=== PATIENT | male | born 1975 | race Caucasian/White ===

== ENCOUNTER → 2017-04-26 | Outpatient (CLI) | payer BC ==
[~2017-04-26] MED LIST: ATOM40CA PO; ATOR-54 PO; CITA20TA4 PO; LPT20 PO; PANT40TA PO; VENL150C56 PO; VNTHFA/IN INH
== END | disposition home or self-care (01) ==
LOC: C.LABSPEC 11:15
PROVIDERS: ATTEND Urology
DX: Z86.79 Personal history of other diseases of the circulatory system (principal)

== ENCOUNTER → 2017-05-06 | Outpatient (CLI) | payer BC ==
--- NOTE | 2017-05-06 09:34 | DIAGNOSTIC IMAGING REPORT ---
CT SCAN OF THE ABDOMEN AND PELVIS WITHOUT IV CONTRAST CLINICAL HISTORY: Urinary tract infection. COMPARISON STUDY: No priors. TECHNIQUE: CT scan of the abdomen and pelvis is performed from the lung bases to the proximal femora. Images are reviewed in the axial, sagittal, and coronal planes. IV contrast was not administered for this examination. Automated dose control exposure was utilized. A dose lowering technique was utilized adhering to the principles of ALARA. CT DOSE: 1655.07 mGy.cm FINDINGS: Lung bases: The heart is normal in size and without pericardial effusion. There is a 6 mm right lower lobe pulmonary nodule seen on image #25. No airspace consolidation or pleural effusion is seen. There is a tiny hiatal hernia. Liver: The unenhanced liver is enlarged, measuring 19.4 cm in length. The liver demonstrates diffusely diminished attenuation consistent with hepatic steatosis. Fatty sparing is seen adjacent to gallbladder fossa. There is no intrahepatic biliary ductal dilatation. Gallbladder: Unremarkable. Spleen: Normal in size and attenuation. Pancreas: Unremarkable. Adrenal glands: Unremarkable. Kidneys: The unenhanced kidneys are normal in size and without hydronephrosis. There are no renal calculi identified. There is no evidence of contour deforming renal mass lesion. Abdominal vasculature: The abdominal aorta is normal in course and caliber. Bowel: The small bowel and colon are normal in course and caliber. The appendix is well-visualized and normal. Peritoneum: There is no intraperitoneal free air or abdominal ascites. There is a small fat-containing umbilical hernia. Lymphadenopathy: None. Pelvic viscera: The bladder, prostate, and seminal vesicles are normal as visualized. Skeletal structures: No lytic or blastic lesions are seen. IMPRESSION: 1. There are no acute infectious or inflammatory findings in the abdomen or pelvis. 2. Hepatomegaly and hepatic steatosis. 3. There is a 6 mm pulmonary nodule incidentally found in the right lower lobe. Follow-up with dedicated chest CT is recommended for further assessment of the thorax. Electronically signed by: Ralph Diego M.D. 05/06/2017 9:33 AM Dictated Date/Time: 05/06/2017 9:28 AM
== END | disposition home or self-care (01) ==
LOC: C.CTS 09:01
PROVIDERS: ATTEND Urology
DX: N39.0 Urinary tract infection, site not specified (principal); M54.9 Dorsalgia, unspecified; R16.0 Hepatomegaly, not elsewhere classified; K76.0 Fatty (change of) liver, not elsewhere classified; R91.1 Solitary pulmonary nodule

== ENCOUNTER 2017-07-13 11:25 | Emergency (ER) | payer BC ==
[~2017-07-13] VITALS: Ht 175.3 cm; Wt 137.0 kg
[~2017-07-13 11:25] MED LIST changes: -ATOM40CA PO; -CITA20TA4 PO; -LPT20 PO
[2017-07-13 11:28] VITALS: TEMP 36.6; Ht 175.3 cm; Wt 137.0 kg
[2017-07-13 12:26] LABS: BASO % 0.3 %; BASO ABS # 0.02 K/uL (0-0.2); COMPLETE YES; EOS % 3.8 %; HEMATOCRIT 41.5 % (42-52); IG% 0.2 %; LYMPH % 26.8 %; LYMPH ABS # 1.67 K/uL (1.2-3.4); MEAN CELL VOLUME 85.4 fL (80-100); MEAN CORPUSCULAR HGB CONC 35.2 g/dl (32-36); MEAN PLATELET VOLUME 9.9 fL (7.4-10.4); NEUT % 56.9 %; PLATELET COUNT 175 K/uL (130-400); RED BLOOD COUNT 4.86 M/uL (4.7-6.1); WHITE BLOOD COUNT 6.24 K/uL (4.8-10.8)
[2017-07-13 12:29] LABS: ALT/SGPT 52 U/L (12-78); BLOOD UREA NITROGEN 14 mg/dl (7-18); BUN/CREATININE RATIO 16.3 (10-20); CARBON DIOXIDE 28 mmol/L (21-32); CHLORIDE 106 mmol/L (98-107); CREATININE 0.83 mg/dl (0.60-1.40); GLUCOSE 97 mg/dl (70-99); POTASSIUM 3.8 mmol/L (3.5-5.1); SODIUM 139 mmol/L (136-145)
[2017-07-13 12:34] LABS: ALB/GLOB RATIO 1.2 (0.9-2); ALKALINE PHOSPHATASE 66 U/L (45-117); AST/SGOT 27 U/L (15-37)
--- NOTE | 2017-07-13 13:26 | EMERGENCY ROOM VISIT NOTE ---
ED Visit Note First contact with patient: 11:45 CHIEF COMPLAINT: Dizziness HISTORY OF PRESENT ILLNESS: This 42-year-old male patient presents to the emergency department, ambulatory, approximately one hour after experiencing a short episode of dizziness while in a meeting. 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 He states he did need to step away from the presentation due to his symptoms, but is feeling 100% improved at this time. overall, the patient states he has been intermittently having symptoms the past 2 days. He has been under significant amount of stress, and has been having several late-night meetings until 11 PM, then having to awaken early the next day. The patient states has not had a syncopal episode, nor has he felt like he may pass out. He states he has not had any nausea, vomiting, headache, chest pain, dizziness, dyspnea, cough, difficulty breathing, or other associated symptoms. He does drink a lot water throughout the day and does attempt to state well-hydrated. He does not report any significant cardiac or neurological symptoms or history. This has not occurred in the past. Did not want to come to the emergency department, however a coworker encouraged him to come here for evaluation. He denies any recent head injury. REVIEW OF SYSTEMS: A 10 system review of systems was performed with positives and pertinent negatives listed in the history of present illness. All other systems were reviewed and are negative. ALLERGIES: Penicillin MEDICATIONS: Please see list. I did personally review the patient's medication list. PMH: Hyperlipidemia, anxiety, depression SOCIAL HISTORY: The patient lives locally with family. He denies drug, alcohol , tobacco use. PHYSICAL EXAM: VITALS: Vitals are noted on the nurse's note and reviewed by myself. Vital signs stable. GENERAL: This is a 42-year-old, obese white male, in no acute distress, nondiaphoretic, well-developed well-nourished. SKIN: The skin was without rashes, erythema, edema, or bruising. There is no tenting of the skin. Capillary reflex less than 2 seconds. HEAD: Normocephalic atraumatic. EARS: External auditory canals clear, tympanic membranes pearly napier without erythema or effusion bilaterally. EYES: Pupils equal round and reactive to light and accommodation. Conjunctivae without injection, sclerae without icterus. Extraocular movements intact. NOSE: Patent, turbinates without inflammation or discharge. No sinus tenderness. MOUTH: Mucous membranes moist. Tonsils are not enlarged. Pharynx without erythema or exudate. Uvula midline. Airway patent. Tongue does not deviate. NECK: Supple without nuchal rigidity. No lymphadenopathy. No thyromegaly. Cervical spine is nontender. No JVD. HEART: Regular rate and rhythm without murmurs gallops or rubs. LUNGS: Clear to auscultation bilaterally without wheezes, rales or rhonchi. No dullness to percussion. No retractions or accessory muscle use. MUSCULOSKELETAL: No muscle atrophy, erythema, or edema noted. Full range of motion without joint tenderness in all extremities. No tenderness to palpation. Normal gait. Strength 5/5 throughout. NEURO: Patient was alert and oriented to person place and time. Normal sensation to light and sharp touch. Deep tendon reflexes 2+ throughout. No focal neurological deficits. EMERGENCY DEPARTMENT COURSE: She was seen and evaluated as above. I did discuss with him options including lab work, CT scan, or watch and wait. The patient did agree to having lab work completed. He states he does not feel that he needs a CT scan, as he is feeling completely normal at this time. I did discuss the risks of not performing this test, and the patient understands. Labs were ordered and reviewed and did not show any significant abnormalities. EKG showed normal sinus rhythm with a rate of 71. All results were reviewed with the patient at bedside. The patient does feel comfortable going home and would like to be discharged. He is encouraged to follow up with his PCP outpatient this week. The patient was discharged home in good condition. DIFFERENTIAL DIAGNOSIS: Dizziness, vertigo, closed head injury, pre-syncope, cardiac etiology, NE, CVA, TIA, infectious proceszs such as lyme disease, pneumonia, UTI, malignancy, and others. DIAGNOSIS: Dizziness Current/Historical Medications Scheduled Atorvastatin (Lipitor), 20 MG PO QAM Venlafaxine Hcl (Effexor Extended Rel), 150 MG PO QAM Scheduled PRN Albuterol Hfa (Ventolin Hfa), 2-4 PUFFS INH Q6H PRN for SOB/Wheezing Allergies Coded Allergies: Penicillins (Verified Allergy, Unknown, HIVES, 07/13/17) Vital Signs Date Time Temp Pulse Resp B/P (MAP) Pulse Ox O2 Delivery O2 Flow Rate FiO2 07/13/17 13:43 70 20 160/95 96 07/13/17 12:25 83 22 146/80 86 155/94 78 158/98 07/13/17 11:54 78 07/13/17 11:28 36.6 80 18 166/127 96 Room Air Laboratory Results 07/13/17 11:48 Red Blood Count 4.86, Mean Corpuscular Volume 85.4, Mean Corpuscular Hemoglobin 30.0, Mean Corpuscular Hemoglobin Concent 35.2, Mean Platelet Volume 9.9, Neutrophils (%) (Auto) 56.9, Lymphocytes (%) (Auto) 26.8, Monocytes (%) (Auto) 12.0, Eosinophils (%) (Auto) 3.8, Basophils (%) (Auto) 0.3, Neutrophils # (Auto ) 3.55, Lymphocytes # (Auto) 1.67, Monocytes # (Auto) 0.75, Eosinophils # (Auto ) 0.24, Basophils # (Auto) 0.02 07/13/17 11:48 Test 07/13/17 11:48 White Blood Count 6.24 K/uL (4.8-10.8) Red Blood Count 4.86 M/uL (4.7-6.1) Hemoglobin 14.6 g/dL (14.0-18.0) Hematocrit 41.5 % (42-52) Mean Corpuscular Volume 85.4 fL (80-100) Mean Corpuscular Hemoglobin 30.0 pg (25-34) Mean Corpuscular Hemoglobin Concent 35.2 g/dl (32-36) Platelet Count 175 K/uL (130-400) Mean Platelet Volume 9.9 fL (7.4-10.4) Neutrophils (%) (Auto) 56.9 % Lymphocytes (%) (Auto) 26.8 % Monocytes (%) (Auto) 12.0 % Eosinophils (%) (Auto) 3.8 % Basophils (%) (Auto) 0.3 % Neutrophils # (Auto) 3.55 K/uL (1.4-6.5) Lymphocytes # (Auto) 1.67 K/uL (1.2-3.4) Monocytes # (Auto) 0.75 K/uL (0.11-0.59) Eosinophils # (Auto) 0.24 K/uL (0-0.5) Basophils # (Auto) 0.02 K/uL (0-0.2) RDW Standard Deviation 41.8 fL (36.4-46.3) RDW Coefficient of Variation 13.6 % (11.5-14.5) Immature Granulocyte % (Auto) 0.2 % Immature Granulocyte # (Auto) 0.01 K/uL (0.00-0.02) Anion Gap 5.0 mmol/L (3-11) Est Creatinine Clear Calc Drug Dose 159.5 ml/min Estimated GFR () 125.8 Estimated GFR (Non- 108.5 BUN/Creatinine Ratio 16.3 (10-20) Calcium Level 9.0 mg/dl (8.5-10.1) Total Bilirubin 0.7 mg/dl (0.2-1) Aspartate Amino Transf (AST/SGOT) 27 U/L (15-37) Alanine Aminotransferase (ALT/SGPT) 52 U/L (12-78) Alkaline Phosphatase 66 U/L (45-117) Creatine Kinase MB 3.7 ng/ml (0.5-3.6) Creatine Kinase MB Ratio (0-3.0) Troponin I < 0.015 ng/ml (0-0.045) Total Protein 7.5 gm/dl (6.4-8.2) Albumin 4.0 gm/dl (3.4-5.0) Globulin 3.5 gm/dl (2.5-4.0) Albumin/Globulin Ratio 1.2 (0.9-2) Departure Information Impression Primary Impression: Dizziness Dispostion Home / Self-Care Condition GOOD Referrals Merline Foley M.D. (PCP) Patient Instructions ED Dizziness [facility], My [facility] Additional Instructions He was seen in the emergency department stay for dizziness. Labs did rule out any significant obvious causes for this his symptoms. I do suspect stress and sleep deprivation as the cause of your symptoms. You did decline a CT scan in the emergency department at this time. If your symptoms return or worsen, return to the emergency department to have your head scanned. Please drink plenty of fluids and stay well-hydrated. Follow-up in 2-3 days with your PCP for recheck. Is return to the emergency department for worsening dizziness, headache, confusion, numbness, tingling, blurry vision, or other concerning symptoms.
[2017-07-13 13:43] VITALS: BP 160/95; PULSE 70; O2SAT 96
== END 2017-07-13 13:45 | disposition home or self-care (01) ==
LOC: C.EDB 11:27 → C.EDA 13:45
DX: R42 Dizziness and giddiness (principal); E78.5 Hyperlipidemia, unspecified; F41.9 Anxiety disorder, unspecified; F32.9 Major depressive disorder, single episode, unspecified

== ENCOUNTER 2020-08-20 21:57 | Inpatient (IN) ==
--- OUTSIDE RECORDS SUMMARY | 2020-08-20 21:59 | External Medical Summary | Continuity of Care Document ---
:1975 Author Name Marcus Dawson, Provider Address Unavailable Unavailable , Care Team Providers Name Role Phone Unavailable Unavailable Unavailable Ofelia Dhillon Unavailable [email or web address] PACHECO MCCLENDON Unavailable Unavailable Unavailable Unavailable Unavailable Problems Asthma (493.90) (J45.909) Back pain (724.5) (M54.9) Dysphagia, pharyngeal phase (787.23) (R13.13) Acid reflux disease (530.81) (K21.9) Lung nodule (793.11) (R91.1) UTI (urinary tract infection) (599.0) (N39.0) Dysuria (788.1) (R30.0) Slowing of urinary stream (788.62) (R39.198) Pain, penile (607.9) (N48.89) Phimosis/redundant prepuce (605) (N47.8) Pain in testicle (608.9) (N50.819) Enlarged prostate without lower urinary tract symptoms (luts ) (600.00) (N40.0) Allergies and Adverse Reactions Penicillins (Allergy) Medications Effexor XR 150 MG Oral Capsule Extended Release 24 Hour , M. D. Refills: 0 Lipitor 20 MG Oral Tablet; TAKE 1 TABLET DAILY Eunice MTZ Start: 29-Apr-2017 Refills: 0 Alfuzosin HCl ER 10 MG Oral Tablet Exten ded Release 24 Hour; Take 1 tablet daily CALLUM Ocampo Quantity: 90 Refills: 3 Procedures History of vasectomy Status: Completed History of shoulder surgery Status: Comp leted History of elbow surgery Status: Complet ed History of scrotal surgery Status: Compl eted History of varicose vein ligation Status : Completed Immunizations Immunizations not documented Family History Father Family history of malignant neoplasm of prostate (V16. 42) (Z80.42) Status: Active Family history of Carcinoma of bladder (188.9) (C67.9) Statu s: Active Unknown Family Member Family history of diabetes mellitus (V18.0) Status: Active Comments: Family History (Z83.3) Family history of malignant neoplasm of Status: Active Comments: Family History stomach (V16.0) (Z80.0) Social History - Smoking Status Never smoked tobacco Plan of Treatment Planned Observations Planned Goals not documented Results No Known Results Results not documented
--- OUTSIDE RECORDS SUMMARY | 2020-08-20 21:59 | External Medical Summary | Continuity of Care Document ---
:1975 Author Name Marcus Dawson, Provider Address Unavailable Unavailable , Care Team Providers Name Role Phone Unavailable Unavailable Unavailable Ofelia Dhillon Unavailable [email or web address] PACHECO MCCLENDON Unavailable Unavailable Unavailable Unavailable Unavailable Problems Enlarged prostate without lower urinary tract symptoms (luts ) (600.00) (N40.0) Phimosis/redundant prepuce (605) (N47.8) Pain, penile (607.9) (N48.89) Back pain (724.5) (M54.9) Asthma (493.90) (J45.909) Dysuria (788.1) (R30.0) UTI (urinary tract infection) (599.0) (N39.0) Lung nodule (793.11) (R91.1) Acid reflux disease (530.81) (K21.9) Dysphagia, pharyngeal phase (787.23) (R13.13) Slowing of urinary stream (788.62) (R39.198) Pain in testicle (608.9) (N50.819) Allergies and Adverse Reactions Penicillins (Allergy) Medications Effexor XR 150 MG Oral Capsule Extended Release 24 Hour , M. D. Refills: 0 Alfuzosin HCl ER 10 MG Oral Tablet Exten ded Release 24 Hour; Take 1 tablet daily CALLUM Ocampo Quantity: 90 Refills: 3 Lipitor 20 MG Oral Tablet; TAKE 1 TABLET DAILY DIRECTED. , M.D. Start: 29-Apr-2017 Refills: 0 Procedures History of vasectomy Status: Completed History [...]
[2020-08-20] MEDS ORDERED: SODIUM CHLORIDE 0.9% 1000ML 1,000 ML IV SCH ×2 (22:15→23:14)
[2020-08-20] MEDS ORDERED: ACETAMINOPHEN 500 MG TAB PO STA (22:24)
--- NOTE | 2020-08-20 22:28 | Emergency Department Note ---
Impression & Plan COVID-19, Breathlessness, Fever, Tachycardia ED Provider Note Provider: Wilmer Pollack MD DATE OF SERVICE:08/20/2020 CHIEF COMPLAINT: Fever, sore throat, myalgias, shortness of breath HISTORY OF PRESENT ILLNESS: Patient is a 45-year-old gentleman history of prior LAP-BAND surgery and asthma presenting here today complaining of onset of symptoms starting this afternoon with sore throat developing fever of at least 202, diffuse myalgias, some shortness of breath, little bit of lower diaphragm chest discomfort with breathing. Patient states took some Advil around 9 PM this evening to help with fever. Did not use any of his albuterol. 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 Patient states his son tested negative for coronavirus last week. Patient states he had a negative test a month or 2 ago when he had shoulder surgery. Patient denies any nausea vomiting or abdominal discomfort at this time. Patient denies significant recent travel outside of the area. Patient states his ears feel little bit stuffed nasal bit of sinus congestion. States a mild headache at this time. Denies focal numbness or weakness. Patient states his predominantly recommended he come and get evaluated and tested today. REVIEW OF SYSTEMS: A total of 10 review of systems was obtained and negative except as stated above in the HPI. PAST MEDICAL HISTORY: As noted above MEDICATIONS: Reviewed home medications. SOCIAL HISTORY: Works as a [employer] claims manager, lives at home PHYSICAL EXAM: GENERAL: alert and oriented in no acute distress on stretcher Head: normocephalic and atraumatic EYES: No injection, discharge or icterus. NECK: Trachea midline. Supple. ENT: Mucous membranes pink and moist. Pharynx without erythema or exudate. LUNGS: Airway patent. No retractions but just mildly tachypneic.. Breath sounds clear with good air entry bilaterally. HEART: Regular tachycardic rate and rhythm. No chest wall tenderness ABDOMEN: Soft and non-tender, without guarding or rebound. SKIN: Acyanotic, warm, dry, without rashes EXTREMITIES: Without swelling, tenderness or deformity without significant tenderness of the right shoulder which is status post recent surgery. A few well-healed port sites are noted. NEUROLOGICAL: No focal deficits. No aphasia. No facial droop or slurred speech. EKG:Sinus tachycardia 131 bpm. There is little bit of artifact but do not see clear evidence of PVC or PAC. No acute ST segment elevation noted. Some inferior T wave inversions are noted. CONTINUOUS CARDIAC MONITORING: was ordered and showed a heart rate of 110's- 120's bpm in sinus tachycardia 1 view chest x-ray: No evidence of pneumonia or pneumothorax but increased interstitial markings questioning a possible viral process. No acute bony abnormality noted. No acute free air under the diaphragm noted. Patient's laboratory studies and imaging reviewed. Differential includes Viral syndrome, otitis, pharyngitis, pneumonia, influenza, meningitis, urinary tract infection, sepsis, bacteremia, as well as other pathologies. IMPRESSION/MEDICAL DECISION MAKING: Patient presents with a nonspecific infectious/viral symptoms. Patient does not appear grossly meningitic at this time. Influenza and Covid testing will be completed. X-ray was completed look for possible pneumonia peer D-dimer sent topically PE given his tachycardia and shortness of breath. Given IV fluids 30ml/kg based on ideal body weight as I do have concerns for possible sepsis. Patient has benign abdomen doubt acute intra-abdominal process. Blood cultures and lactate will be ordered in addition to basic laboratory studies. EKG shows a fairly sinus tachycardia with occasional benign ectopy. I doubt acute ACS at this time or aortic dissection. No significant leg swelling I doubt acute CHF at this time. No significant leukocytosis or anemia noted on laboratory studies. Some lymphopenia is noted. Lactate not elevated. D-dimer not elevated. No significant electrolyte abnormality. Creatinine 1.24 not significantly abnormal. AST slightly elevated at 42 but no evidence of bilirubin elevation. No evidence consistent with hepatitis. Lipase not elevated. Procalcitonin undetectable. Given this and the clinical history with a positive coronavirus do not believe antibiotics are necessary at this time as I doubt this is a bacterial infection. Coronavirus testing was positive seemingly explaining sy mptoms. Troponin was just detectable but not abnormal likely related some of the tachycardia. Patient reevaluated and still complains a little bit of shortness of breath but not significant hypoxia. Was able ambulate the bathroom at issue. Fever after Tylenol improved to 37.6 Celsius. Patient still with some moderate tachycardia after more than 50% of his fluids per discussed with the patient. Recommended we light additional fluid hydration continue and see if his tachycardia improves. On reevaluation tachycardia persisted after 2-1/2 L of IV fluid. Fever again has improved some. Still with some subjective shortness of breath but not hypoxic. Discussed further observation given this persistent tachycardia and he was in agreement. Hospitalist was contacted. DIAGNOSIS: Coronavirus 19, shortness of breath, tachycardia, fever DISPOSITION: Hospitalist will evaluate Patient was agreeable with this plan. Past Med/Surg History Social History Smoking Status: Former smoker Feels Safe at Home: Yes Allergies Allergies Allergy/AdvReac Type Severity Reaction Status Date / Time Penicillins Allergy Unknown Hives Verified 08/20/20 22:37 Home Meds Home Medications Medication Instructions Recorded Confirmed meloxicam 15 mg PO QAM 08/20/20 08/20/20 rosuvastatin 10 mg PO QAM 08/20/20 08/20/20 testosterone cypionate 100 mg IM WK 08/20/20 08/20/20 venlafaxine 150 mg PO QAM 08/20/20 08/20/20 Results & Data (ED) Vital Signs Vital Signs - 24 hr 08/20/20 22:06 08/20/20 22:07 08/20/20 22:09 Temperature 39.6 C H Temperature Source Oral Pulse Rate 129 H 129 H 128 H Pulse Rate from SpO2 Sensor 128 H 127 H Respiratory Rate 30 H 21 38 H Respiratory Effort / Characteristics SOB on Exertion Respiratory Depth Shallow Blood Pressure 132/86 132/86 Blood Pressure Mean 101 103 Blood Pressure Position Sitting Pulse Oximetry 94 95 94 Oxygen Delivery Method Room Air Sepsis Recent Fever Within 48 Hours Yes Sepsis New/Unexplained Change in Mental Status No Sepsis Action Taken by Nursing No Action Required 08/20/20 22:30 08/20/20 22:37 08/20/20 22:59 Temperature Temperature Source Pulse Rate 127 H 126 H Pulse Rate from SpO2 Sensor 127 H Respiratory Rate 37 H 24 Respiratory Effort / Characteristics Respiratory Depth Blood Pressure 100/75 Blood Pressure Mean 84 Blood Pressure Position Pulse Oximetry 94 94 Oxygen Delivery Method Room Air Sepsis Recent Fever Within 48 Hours Sepsis New/Unexplained Change in Mental Status Sepsis Action Taken by Nursing 08/20/20 23:00 08/20/20 23:01 08/20/20 23:30 Temperature Temperature Source Pulse Rate 123 H 127 H 118 H Pulse Rate from SpO2 Sensor 123 H 127 H 118 H Respiratory Rate 39 H 21 30 H Respiratory Effort / Characteristics Respiratory Depth Blood Pressure 115/72 Blood Pressure Mean 76 Blood Pressure Position Pulse Oximetry 93 94 94 Oxygen Delivery Method Sepsis Recent Fever Within 48 Hours Sepsis New/Unexplained Change in Mental Status Sepsis Action Taken by Nursing 08/20/20 23:31 08/20/20 23:57 08/21/20 00:00 Temperature 37.8 C H Temperature Source Oral Pulse Rate 122 H 119 H Pulse Rate from SpO2 Sensor 121 H 119 H Respiratory Rate 29 H 37 H Respiratory Effort / Characteristics Respiratory Depth Blood Pressure 124/65 Blood Pressure Mean 82 Blood Pressure Position Pulse Oximetry 95 95 Oxygen Delivery Method Sepsis Recent Fever Within 48 Hours Sepsis New/Unexplained Change in Mental Status Sepsis Action Taken by Nursing 08/21/20 00:01 08/21/20 00:02 Temperature Temperature Source Pulse Rate 120 H 116 H Pulse Rate from SpO2 Sensor 121 H 117 H Respiratory Rate 39 H 26 H Respiratory Effort / Characteristics Respiratory Depth Blood Pressure 89/70 L 119/52 L Blood Pressure Mean 87 74 Blood Pressure Position Pulse Oximetry 95 95 Oxygen Delivery Method Sepsis Recent Fever Within 48 Hours Sepsis New/Unexplained Change in Mental Status Sepsis Action Taken by Nursing Laboratory Data Result diagrams: 08/20/20 22:50 08/20/20 22:50 Lab Results 08/20/20 08/20/20 08/20/20 Range/Units 21:50 21:50 22:45 WBC (4.8-10.8) K/uL RBC (4.7-6.1) M/uL Hgb (14.0-18.0) g/dL Hct (42-52) % MCV (80-100) fL MCH (25-34) pg MCHC (32-36) g/dL RDW Std Deviation (36.4-46.3) fL RDW Coeff of Shun (11.5-14.5) % Plt Count (130-400) K/uL MPV (7.4-10.4) fL Immature Gran % (Auto) % Neut % (Auto) % Lymph % (Auto) % Meigs % (Auto) % Eos % (Auto) % Baso % (Auto) % Neut # (Auto) (1.4-6.5) K/uL Lymph # (Auto) (1.2-3.4) K/uL Meigs # (Auto) (0.11-0.59) K/uL Eos # (Auto) (0-0.5) K/uL Baso # (Auto) (0-0.2) K/uL Immature Gran # (Auto) (0.00-0.02) K/uL PT (9.0-12.0) Seconds INR (0.9-1.1) APTT (21.0-31.0) Seconds PTT Ratio D-Dimer (0-500) ug/L FEU Sodium (136-145) mmol/L Potassium (3.5-5.1) mmol/L Chloride (98-107) mmol/L Carbon Dioxide (21-32) mmol/L Anion Gap (3-11) BUN (7-18) mg/dl Creatinine (0.6-1.4) mg/dl Est Cr Clr Drug Dosing ml/min Est GFR ( Amer) Est GFR (Non-Af Amer) BUN/Creatinine Ratio (10-20) Glucose (70-99) mg/dl Lactate 1.3 (0.4-2.0) mmol/L Calcium (8.5-10.1) mg/dl Magnesium (1.8-2.4) mg/dl Total Bilirubin (0.2-1) mg/dl AST (15-37) U/L ALT (12-78) U/L Alkaline Phosphatase (45-117) U/L Troponin I (0-0.045) ng/ml Total Protein (6.4-8.2) gm/dl Albumin (3.4-5.0) gm/dl Globulin (2.5-4.0) gm/dl Albumin/Globulin Ratio (0.9-2) Lipase (73-393) U/L Procalcitonin (0-0.5) ng/ml Specimen Hemolysis COVID-19 Eval [facility] Influ A Molecular Assay (Negative) Influ B Molecular Assay (Negative) SARS-CoV-2, RNA, NAAT POSITIVE A* (NEGATIVE) 08/20/20 08/20/20 08/20/20 Range/Units 22:50 22:50 22:50 WBC (4.8-10.8) K/uL RBC (4.7-6.1) M/uL Hgb (14.0-18.0) g/dL Hct (42-52) % MCV (80-100) fL MCH (25-34) pg MCHC (32-36) g/dL RDW Std Deviation (36.4-46.3) fL RDW Coeff of Shun (11.5-14.5) % Plt Count (130-400) K/uL MPV (7.4-10.4) fL Immature Gran % (Auto) % Neut % (Auto) % Lymph % (Auto) % Meigs % (Auto) % Eos % (Auto) % Baso % (Auto) % Neut # (Auto) (1.4-6.5) K/uL Lymph # (Auto) (1.2-3.4) K/uL Meigs # (Auto) (0.11-0.59) K/uL Eos # (Auto) (0-0.5) K/uL Baso # (Auto) (0-0.2) K/uL Immature Gran # (Auto) (0.00-0.02) K/uL PT 11.4 (9.0-12.0) Seconds INR 1.1 (0.9-1.1) APTT 30.5 (21.0-31.0) Seconds PTT Ratio 1.1 D-Dimer 310 (0-500) ug/L FEU Sodium 137 (136-145) mmol/L Potassium 3.9 (3.5-5.1) mmol/L Chloride 105 (98-107) mmol/L Carbon Dioxide 28 (21-32) mmol/L Anion Gap 5.0 (3-11) BUN 22 H (7-18) mg/dl Creatinine 1.24 (0.6-1.4) mg/dl Est Cr Clr Drug Dosing 97.8 ml/min Est GFR ( Amer) 80.9 Est GFR (Non-Af Amer) 69.8 BUN/Creatinine Ratio 17.6 (10-20) Glucose 90 (70-99) mg/dl Lactate (0.4-2.0) mmol/L Calcium 9.2 (8.5-10.1) mg/dl Magnesium 1.8 (1.8-2.4) mg/dl Total Bilirubin 0.6 (0.2-1) mg/dl AST 42 H (15-37) U/L ALT 41 (12-78) U/L Alkaline Phosphatase 55 (45-117) U/L Troponin I 0.016 (0-0.045) ng/ml Total Protein 7.7 (6.4-8.2) gm/dl Albumin 4.1 (3.4-5.0) gm/dl Globulin 3.6 (2.5-4.0) gm/dl Albumin/Globulin Ratio 1.1 (0.9-2) Lipase 137 (73-393) U/L Procalcitonin < 0.05 (0-0.5) ng/ml Specimen Hemolysis COVID-19 Eval Order Influ A Molecular Assay (Negative) Influ B Molecular Assay (Negative) SARS-CoV-2, RNA, NAAT (NEGATIVE) 08/20/20 08/20/20 Range/Units 22:50 Unknown WBC 8.86 (4.8-10.8) K/uL RBC 5.58 (4.7-6.1) M/uL Hgb 16.8 (14.0-18.0) g/dL Hct 48.6 (42-52) % MCV 87.1 (80-100) fL MCH 30.1 (25-34) pg MCHC 34.6 (32-36) g/dL RDW Std Deviation 45.3 (36.4-46.3) fL RDW Coeff of Shun 14.1 (11.5-14.5) % Plt Count 176 (130-400) K/uL MPV 10.7 H (7.4-10.4) fL Immature Gran % (Auto) 0.3 % Neut % (Auto) 74.8 % Lymph % (Auto) 13.0 % Meigs % (Auto) 5.4 % Eos % (Auto) 6.0 % Baso % (Auto) 0.5 % Neut # (Auto) 6.63 H (1.4-6.5) K/uL Lymph # (Auto) 1.15 L (1.2-3.4) K/uL Meigs # (Auto) 0.48 (0.11-0.59) K/uL Eos # (Auto) 0.53 H (0-0.5) K/uL Baso # (Auto) 0.04 (0-0.2) K/uL Immature Gran # (Auto) 0.03 H (0.00-0.02) K/uL PT (9.0-12.0) Seconds INR (0.9-1.1) APTT (21.0-31.0) Seconds PTT Ratio D-Dimer (0-500) ug/L FEU Sodium (136-145) mmol/L Potassium (3.5-5.1) mmol/L Chloride (98-107) mmol/L Carbon Dioxide (21-32) mmol/L Anion Gap (3-11) BUN (7-18) mg/dl Creatinine (0.6-1.4) mg/dl Est Cr Clr Drug Dosing ml/min Est GFR ( Amer) Est GFR (Non-Af Amer) BUN/Creatinine Ratio (10-20) Glucose (70-99) mg/dl Lactate (0.4-2.0) mmol/L Calcium (8.5-10.1) mg/dl Magnesium (1.8-2.4) mg/dl Total Bilirubin (0.2-1) mg/dl AST (15-37) U/L ALT (12-78) U/L Alkaline Phosphatase (45-117) U/L Troponin I (0-0.045) ng/ml Total Protein (6.4-8.2) gm/dl Albumin (3.4-5.0) gm/dl Globulin (2.5-4.0) gm/dl Albumin/Globulin Ratio (0.9-2) Lipase (73-393) U/L Procalcitonin (0-0.5) ng/ml Specimen Hemolysis COVID-19 Eval Order Influ A Molecular Assay Negative (Negative) Influ B Molecular Assay Negative (Negative) SARS-CoV-2, RNA, NAAT (NEGATIVE) Administered Medications Discontinued Medications Acetaminophen (Acetaminophen 500 Mg Tab) 1,000 mg PO NOW STA Stop: 08/20/20 22:25 Last Admin: 08/20/20 22:48 Dose: 1,000 mg Documented by: [id number] Sodium Chloride (Nss 1000ml) 1,000 mls @ 999 mls/hr IV .Q1H1M DEJAH Stop: 08/20/20 23:14 Last Infusion: 08/21/20 00:09 Dose: 0 mls/hr Documented by: [id number] Admin: 08/20/20 22:48 Dose: 999 mls/hr Documented by: [id number] Sodium Chloride (Nss 1000ml) 1,000 mls @ 999 mls/hr IV .Q1H1M DEJAH Stop: 08/21/20 00:13 Last Infusion: 08/21/20 00:06 Dose: 0 mls/hr Documented by: [id number] Admin: 08/20/20 22:48 Dose: 999 mls/hr Documented by: [id number] Sodium Chloride (Nss 1000ml) 250 mls @ 999 mls/hr IV .Q16M DEJAH Stop: 08/21/20 00:29 Last Infusion: 08/21/20 00:40 Dose: 0 mls/hr Documented by: [id number] Admin: 08/21/20 00:06 Dose: 999 mls/hr Documented by: [id number] Discharge Plan Visit Data Chief Complaint: Flu Like Symptoms Stated Complaint: FEVER, SOB, SORE THROAT, CHILLS ED Provider: Wilmer Pollack Discharge Problem: COVID-19, Breathlessness, Fever, Tachycardia Patient Disposition: Being Evaluated by Hospitalist Forms Stand Alone Forms: [facility] Prescriptions Prescriptions: No Action meloxicam 15 mg tablet 15 mg PO QAM RF: 0 testosterone cypionate 100 mg/mL Oil 100 mg IM WK RF: 0 venlafaxine 150 mg capsule,extended release 24hr 150 mg PO QAM RF: 0 rosuvastatin 10 mg tablet 10 mg PO QAM RF: 0 Referrals Referrals: Merline Foley MD [Primary Care Provider] - Discharge Problem: Fever Qualifiers: Fever type: unspecified Qualified Code(s): R50.9 - Fever, unspecified
[2020-08-20 23:08] LABS: Basophils # (auto) 0.04 K/uL (0-0.2); Basophils % (auto) 0.5 %; Eosinophils # (auto) 0.53 K/uL (0-0.5); Hematocrit (blood only) 48.6 % (42-52); Hemoglobin 16.8 g/dL (14.0-18.0); Immature Granulocytes # (auto) 0.03 K/uL (0.00-0.02); Immature Granulocytes % (auto) 0.3 %; Lymphocytes # (auto) 1.15 K/uL (1.2-3.4); Mean Corpuscular Hemoglobin 30.1 pg (25-34); Mean Corpuscular Hgb Conc 34.6 g/dL (32-36); Mean Corpuscular Volume 87.1 fL (80-100); Mean Platelet Volume 10.7 fL (7.4-10.4); Monocytes # (auto) 0.48 K/uL (0.11-0.59); Monocytes % (auto) 5.4 %; Neutrophils # (auto) 6.63 K/uL (1.4-6.5); Neutrophils % (auto) 74.8 %; Platelet Count 176 K/uL (130-400); RDW Coefficient of Variation 14.1 % (11.5-14.5); RDW Standard Deviation 45.3 fL (36.4-46.3); Red Blood Count 5.58 M/uL (4.7-6.1); White Blood Count 8.86 K/uL (4.8-10.8)
[2020-08-20 23:27] LABS: Albumin Level 4.1 gm/dl (3.4-5.0); BUN Creatinine Ratio 17.6 (10-20); Calcium 9.2 mg/dl (8.5-10.1); Creatinine Clr Calc Pharmacy 97.8 ml/min; D Dimer 310 ug/L FEU (0-500); Est GFR (African American) 80.9; Est GFR (Non-African American) 69.8; INR 1.1 (0.9-1.1); Magnesium 1.8 mg/dl (1.8-2.4); Partial Thromboplastin Ratio 1.1; Partial Thromboplastin Time 30.5 Seconds (21.0-31.0); Potassium 3.9 mmol/L (3.5-5.1); Prothrombin Time 11.4 Seconds (9.0-12.0)
[2020-08-20 23:33] LABS: Albumin Globulin Ratio 1.1 (0.9-2); Bilirubin,Total 0.6 mg/dl (0.2-1); Globulin 3.6 gm/dl (2.5-4.0); Total Protein 7.7 gm/dl (6.4-8.2); Troponin I 0.016 ng/ml (0-0.045)
[2020-08-20 23:35] LABS: Influenza A virus by PCR Negative (Negative); Influenza B virus by PCR Negative (Negative)
[2020-08-21] MEDS ORDERED: SODIUM CHLORIDE 0.9% 1000ML 250 ML IV SCH (00:14)
[2020-08-21] MEDS ORDERED: ONDANSETRON INJ 2 MG/ML 2 ML VIAL IV PRN (02:41)
[2020-08-21] MEDS ORDERED: LEVALBUTEROL TARTRATE 15 GM HFA.AER.AD INH PRN (02:41)
[2020-08-21] MEDS ORDERED: NITROGLYCERIN SL 0.4 MG/TAB TAB SL PRN (02:41)
[2020-08-21] MEDS: SODIUM CHLORIDE 0.9% 1000ML 1,000 ML IV SCH ×3 (03:02→21:00)
--- NOTE | 2020-08-21 03:10 | History and Physical Report ---
DATE OF ADMISSION: 08/21/2020 CHIEF COMPLAINT: Fever, tachycardia, and COVID positive. HISTORY OF PRESENT ILLNESS: This 45-year-old male with past medical history significant for hyperlipidemia, exercise-induced asthma, BPH, anxiety, obesity, presents with high fever, tachycardia and shortness of breath. Today is the first day he started to have symptoms with fever, some nasal congestion, mild earaches, no sore throat, no cough. 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 No obvious exposure, but now he just got informed his son is throwing up. When the patient came to the ER, he was having T-max of 39.6, heart rates in the 120s and tachypneic with respiratory rate in 30s. He was given sepsis fluid bolus. Labs look fine and his COVID came back positive.Even after the fluid bolus, he was still tachycardic, so we were called for admission. The patient currently saturating fine on room air. Currently resting comfortably and hemodynamically stable. Heart rate is still in the likes of 100s and low 110s range. Denies any chest pain. Currently, no tachypnea. No headache, no blurred vision, no nausea, no vomiting, no abdominal pain, no diarrhea or constipation. Normal bladder movements. No swelling in the legs, no rash. History of Gastric band but that is removed. Recently had right shoulder surgery for rotator cuff repair. ALLERGIES: NAPROXEN, PENICILLIN. PAST MEDICAL HISTORY: As mentioned above. PAST SURGICAL HISTORY: Left toe arthroscopy, EGD with endoscopic ultrasound, gastric stent placement in 2014 and gastric band removal in January 2016, repair of sperm cord ventral hernia, vasectomy. MEDICATIONS: The patient is on Meloxicam 50 mg p.o. daily, atorvastatin 10 mg p.o. a.m., testosterone 100 mg IM shot weekly, venlafaxine 150 mg p.o. a.m. FAMILY HISTORY: Significant for father had high cholesterol, aunt had stomach cancer. Maternal grandfather had leukemia, paternal grandfather had prostate cancer, uncle has prostate cancer. Son has seizures. SOCIAL HISTORY: . Former smoker, smoked 1 pack a day for 10 years. No alcohol use, no drug use. REVIEW OF SYMPTOMS: As per HPI. Rest of review of symptoms negative. PHYSICAL EXAMINATION: GENERAL: The patient is obese, not in acute distress. VITAL SIGNS: T-max was 39.6, respiratory rate currently 22, blood pressure 128/64, pulse 112, oxygen 97% on room air. HEENT: Pupils equal, round, reactive to light. Oral mucosa moist. NECK: Supple. No neck masses seen. CARDIOVASCULAR: S1, S2 heard. Tachycardia. No murmurs. RESPIRATORY SYSTEM: Normal AP diameter. No accessory muscle use. No wheezing, no crackles. ABDOMEN: Soft, bowel sounds present, nontender. No distention. CENTRAL NERVOUS SYSTEM: Cranial nerves II-XII grossly intact. Nonfocal. EXTREMITIES: No edema, no erythema. LABORATORY DATA: WBC 8.8, hemoglobin 16.8, hematocrit 48.6, platelets 176. PT 11.4, INR 1.1, APTT 30.5. D-dimer 310. Sodium 137, potassium 3.9, chloride 105, bicarbonate 28, BUN 22, creatinine 1.24, serum glucose 90. Lactate 1.3, calcium 9.2, magnesium 1.8, total bilirubin 0.6, AST 42, ALT 41, alkaline phosphatase 65. Troponin I 0.016. Procalcitonin less than 0.05. Lipase 137. SARS-CoV-2 RNA positive. Chest x-ray: No acute findings. ASSESSMENT AND PLAN: This is a 45-year-old male who presents with high fever and tachycardia and tachypnea, found to be COVID positive. 1. COVID-19 positive. Presented with high fever, tachypnea and tachycardia and short of breath, but saturating fine on room air. With the fluid bolus tachycardia improved, but still tachycardic, heart rate is still in low 100s and 110s. Temperature is coming down. Not requiring oxygen. Currently tachypnea improved. Resting comfortably. D-dimer is not elevated. Labs are okay. Lactic acid and procalcitonin ok. Not starting on remdesivir and dexamethasone at this time, because not requiring oxygenation. Because of persistent tachycardic, we are going to keep in the hospital and observe. Not starting any antibiotics currently, continue with IV normal saline at 125 mL per hour and Tylenol p.r.n. and monitor in the tele floor. 2. Exercise induced asthma, currently stable. Currently not wheezing. We will place him on Xopenex inhaler p.r.n. 3. Hyperlipidemia. Continue statin. 4. Depression, continue venlafaxine. 5. Deep venous thrombosis prophylaxis, Lovenox. DISPOSITION: Closely monitor in tele floor. Expect to discharge home and follow with family doctor. Level 1 full code. MTDD
[2020-08-21] MEDS: ACETAMINOPHEN 325 MG TAB PO PRN ×3 (06:15→23:29)
[2020-08-21 06:19] LABS: Basophils # (auto) 0.02 K/uL (0-0.2); Basophils % (auto) 0.4 %; Eosinophils # (auto) 0.32 K/uL (0-0.5); Eosinophils % (auto) 5.9 %; Hematocrit (blood only) 46.7 % (42-52); Hemoglobin 15.6 g/dL (14.0-18.0); Immature Granulocytes # (auto) 0.02 K/uL (0.00-0.02); Immature Granulocytes % (auto) 0.4 %; Lymphocytes # (auto) 0.67 K/uL (1.2-3.4); Lymphocytes % (auto) 12.4 %; Mean Corpuscular Hemoglobin 29.3 pg (25-34); Mean Corpuscular Hgb Conc 33.4 g/dL (32-36); Mean Corpuscular Volume 87.6 fL (80-100); Mean Platelet Volume 10.2 fL (7.4-10.4); Monocytes # (auto) 1.12 K/uL (0.11-0.59); Monocytes % (auto) 20.7 %; Neutrophils # (auto) 3.25 K/uL (1.4-6.5); Neutrophils % (auto) 60.2 %; Platelet Count 139 K/uL (130-400); RDW Coefficient of Variation 14.2 % (11.5-14.5); RDW Standard Deviation 45.6 fL (36.4-46.3); Red Blood Count 5.33 M/uL (4.7-6.1)
[2020-08-21 06:30] LABS: D Dimer 320 ug/L FEU (0-500)
[2020-08-21 06:41] LABS: BUN Creatinine Ratio 13.4 (10-20); Calcium 8.4 mg/dl (8.5-10.1); Creatinine Clr Calc Pharmacy 104.7 ml/min; Est GFR (African American) 87.7; Est GFR (Non-African American) 75.6; Magnesium 1.9 mg/dl (1.8-2.4)
[2020-08-21 07:07] LABS: Appearance Urine Clear (Clear); Bilirubin Urine Negative (Negative); Blood Urine Negative (Negative); Color Urine Yellow; Glucose Urine UA Negative (Negative); Ketones Urine Negative (Negative); Leukocyte Esterase Urine Negative (Negative); Nitrite Urine Negative (Negative); Protein Urine Negative (Negative); Specific Gravity Urine 1.012 (1.000-1.030); Urobilinogen Urine Negative (Negative); pH Urine 6.5 (4.5-7.5)
--- NOTE | 2020-08-21 08:04 | XRay Report ---
XR chest 1V portable HISTORY: SEPSIS COMPARISON: Chest 07/30/2015. FINDINGS: There are low lung volumes. No focal lung consolidations to suggest pneumonia. Prominence o f interstitial markings may be technical. The cardiac silhouette is borderline enlarged. This may be accentuated by the AP portable technique and low lung volumes. This is similar to the prior study. IMPRESSION: 1. Prominence of interstitial markings which is likely due to the AP portable technique and low lung volumes. 2. No focal lung consolidations to suggest pneumonia. ACT 112: Negative or not required by law. Electronically signed by: Rob Vazquez M.D. 08/21/2020 8:02 AM
[2020-08-21] MEDS: ENOXAPARIN INJ 40 MG/0.4 ML SYR SQ SCH ×2 (08:22→21:07)
[2020-08-21] MEDS: ROSUVASTATIN CALCIUM 10 MG TAB PO SCH (08:22)
[2020-08-21] MEDS: VENLAFAXINE HCL XR 150 MG CAPXR PO SCH (08:22)
--- NOTE | 2020-08-21 12:07 | Electrocardiogram Report ---
Test Reason : Blood Pressure : / mmHG Vent. Rate : 131 BPM Atrial Rate : 131 BPM P-R Int : 140 ms QRS Dur : 094 ms QT Int : 290 ms P-R-T Axes : 043 084 -03 degrees QTc Int : 428 ms Sinus tachycardia with Fusion complexes Possible Left atrial enlargement Abnormal ECG When compared with ECG of 02-MAR-2018 14:33, Fusion complexes are now Present Vent. rate has increased BY 48 BPM Confirmed by Bruce Hardy ([id number]) on 08/21/2020 12:06:28 PM Referred By: REFERRED SELF Confirmed By:Bruce Hardy
--- NOTE | 2020-08-21 19:30 | Hospitalist Progress Note ---
Date of Service August 21, 2020 Assessment & Plan (1) COVID-19: (2) Fever: Present on admission with fever and tachycardia Temp on admission 39.6 COVID test positive CXR showed no focal lung consolidations to suggest pneumonia. D-dimer is not elevated. Lactic acid and procalcitonin ok. Not a candidate for Remdesivir, dexamethasone and Convalescent plasma since pt is saturated well on RA (Denies no SOB) Blood cx pending, will continue to hold abx Continue monitor closely Tachycardia Mostly due to fever HR on admission 120's Received IVF, HR improves Continue IVF Continue monitor in tele . Exercise induced asthma, Currently stable Continue Xopenex inhaler p.r.n Hyperlipidemia. Continue statin Depression Continue venlafaxine. Deep venous thrombosis prophylaxis On Lovenox. Disposition Will discharge home tomorrow Admission and Anticipated Discharge Date Admission Date: August 21, 2020 Subjective Pt was seen and examined Sitting in chair with no distress Pt said that he feels ok He had a low grade fever today He agreed to stay for tonight Denies any chest pain, palpitation, dizziness, and SOB Physical Exam Physical Exam: General- No acute distress Head- atraumatic Eyes- PERRL, EOMI, ENT- oropharynx clear Neck- supple, no JVD Lungs- clear to auscultation Heart- regular rhythm; no murmur Abdomen- normal bowel sounds, soft, nontender Extremities- no calf tenderness Neuro- alert, oriented x 3; PERRL, EOMI; no facial palsy; no dysarthria Skin- warm & dry Results & Data Results & Data ([facility]) Vital Signs (Past 12 Hours) Vital Signs Temp Pulse Resp BP Pulse Ox 08/21/20 12:15 37.6 C H 97 H 20 124/75 99 08/21/20 08:00 36.8 C 85 18 134/66 98 (1) Fever Fever type: unspecified Qualified Code(s): R50.9 - Fever, unspecified
[2020-08-22] MEDS: ACETAMINOPHEN 325 MG TAB PO PRN (04:20)
[2020-08-22] MEDS: ENOXAPARIN INJ 40 MG/0.4 ML SYR SQ SCH (07:52)
[2020-08-22] MEDS: VENLAFAXINE HCL XR 150 MG CAPXR PO SCH (07:52)
[2020-08-22] MEDS: ROSUVASTATIN CALCIUM 10 MG TAB PO SCH (07:52)
[2020-08-22] MEDS: SODIUM CHLORIDE 0.9% 1000ML 1,000 ML IV SCH (07:54)
--- NOTE | 2020-08-22 15:30 | Discharge Summary ---
Date of Service August 22, 2020 Admission HPI Per Admitting Provider CHIEF COMPLAINT: Fever, tachycardia, and COVID positive. HISTORY OF PRESENT ILLNESS: This 45-year-old male with past medical history significant for hyperlipidemia, exercise-induced asthma, BPH, anxiety, obesity, presents with high fever, tachycardia and shortness of breath. Today is the first day he started to have symptoms with fever, some nasal congestion, mild earaches, no sore throat, no cough. 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 No obvious exposure, but now he just got informed his son is throwing up. When the patient came to the ER, he was having T-max of 39.6, heart rates in the 120s and tachypneic with respiratory rate in 30s. He was given sepsis fluid bolus. Labs look fine and his COVID came back positive.Even after the fluid bolus, he was still tachycardic, so we were called for admission. The patient currently saturating fine on room air. Currently resting comfortably and hemodynamically stable. Heart rate is still in the likes of 100s and low 110s range. Denies any chest pain. Currently, no tachypnea. No headache, no blurred vision, no nausea, no vomiting, no abdominal pain, no diarrhea or constipation. Normal bladder movements. No swelling in the legs, no rash. History of Gastric band but that is removed. Recently had right shoulder surgery for rotator cuff repair. Admission Exam Per Admitting Provider GENERAL: The patient is obese, not in acute distress. VITAL SIGNS: T-max was 39.6, respiratory rate currently 22, blood pressure 128/64, pulse 112, oxygen 97% on room air. HEENT: Pupils equal, round, reactive to light. Oral mucosa moist. NECK: Supple. No neck masses seen. CARDIOVASCULAR: S1, S2 heard. Tachycardia. No murmurs. RESPIRATORY SYSTEM: Normal AP diameter. No accessory muscle use. No wheezing, no crackles. ABDOMEN: Soft, bowel sounds present, nontender. No distention. CENTRAL NERVOUS SYSTEM: Cranial nerves II-XII grossly intact. Nonfocal. EXTREMITIES: No edema, no erythema. Principal Diagnosis XR chest 1V portable HISTORY: SEPSIS COMPARISON: Chest 07/30/2015. FINDINGS: There are low lung volumes. No focal lung consolidations to suggest pneumonia. Prominence of interstitial markings may be technical. The cardiac silhouette is borderline enlarged. This may be accentuated by the AP portable technique and low lung volumes. This is similar to the prior study. IMPRESSION: 1. Prominence of interstitial markings which is likely due to the AP portable technique and low lung volumes. 2. No focal lung consolidations to suggest pneumonia. ACT 112: Negative or not required by law. Electronically signed by: Rob Vazquez M.D. 08/21/2020 8:02 AM Dictated: 08/21/20 08Transcribed: 08/21/20800 Discharge Exam General- No acute distress Head- atraumatic Eyes- PERRL, EOMI, ENT- oropharynx clear Neck- supple, no JVD Lungs- clear to auscultation Heart- regular rhythm; no murmur Abdomen- normal bowel sounds, soft, nontender Extremities- no calf tenderness Neuro- alert, oriented x 3; PERRL, EOMI; no facial palsy; no dysarthria Skin- warm & dry Discharge Data Allergies Allergy/AdvReac Type Severity Reaction Status Date / Time Penicillins Allergy Unknown Hives Verified 08/20/20 22:37 Consultations 08/21/20 00:40 ED Decision to Admit Stat Hospital Course (1) COVID-19: (2) Fever: Present on admission with fever and tachycardia Temp on admission 39.6 COVID test positive CXR showed no focal lung consolidations to suggest pneumonia. D-dimer is not elevated. Lactic acid and procalcitonin ok. Not a candidate for Remdesivir, dexamethasone and Convalescent plasma since pt is saturated well on RA (Denies no SOB) Blood cx pending, will continue to hold abx Continue monitor closely Tachycardia Mostly due to fever HR on admission 120's Received IVF, HR improves Continue IVF Continue monitor in tele . Exercise induced asthma, Currently stable Continue Xopenex inhaler p.r.n Hyperlipidemia. Continue statin Depression Continue venlafaxine. Deep venous thrombosis prophylaxis On Lovenox. Disposition Will discharge home today Total Time Total Time Spent Total Time Spent (In Minutes): 35 minutes Total Time Includes: Examination of the Patient Discharge Plan Discharge Items Patient Disposition: Home - Self-Care Reason For Visit: FLU LIKE SYMPTOMS Discharge Diagnosis: COVID-19 Fever Tachycardia Exercise induced asthma Hyperlipidemia Depression Activity: Resume your previous activity Non-emergency contact: Primary Care Provider Call non-emergency contact if: you have any medication questions Follow-up/Referrals: Merline Foley MD [Primary Care Provider] - (Date & Time 08/26/2020 2:00 PM Provider Adonis Molina MD Department Internal Medicine [facility] PLEASE NOTE: THIS IS A TELEVIDEO APPOINTMENT. PLEASE FOLLOW THE DIRECTIONS IN THE EMAIL THAT YOU WILL RECEIVE. IF YOU HAVE ANY QUESTIONS, PLEASE CALL .) Diet: Heart Healthy Addtl Attending Provider Instructions: Follow up with your primary care provider within 7 days Please continue to wear mask Seek medical attention if you develop any shortness of breath Home Isolation COVID-19 Instructions The following information about Home Isolation is from the CDC Website: https://www.cdc.gov/coronavirus/2019-ncov/hcp/retsnhna-buolboa-irjjtk.html Stay home except to get medical care People who are mildly ill with COVID-19 are able to isolate at home during their illness. You should restrict activities outside your home, except for getting medical care. Do not go to work, school, or public areas. Avoid using public transportation, ride-sharing, or taxis. Separate yourself from other people and animals in your home People: As much as possible, you should stay in a specific room and away from other people in your home. Also, you should use a separate bathroom, if available. Animals: You should restrict contact with pets and other animals while you are sick with COVID-19, just like you would around other people. Although there have not been reports of pets or other animals becoming sick with COVID-19, it is still recommended that people sick with COVID-19 limit contact with animals until more information is known about the virus. When possible, have another member of your household care for your animals while you are sick. If you are sick with COVID-19, avoid contact with your pet, including petting, snuggling, being kissed or licked, and sharing food. If you must care for your pet or be around animals while you are sick, wash your hands before and after you interact with pets and wear a face mask. Call ahead before visiting your doctor If you have a medical appointment, call the healthcare provider and tell them that you have or may have COVID-19. This will help the healthcare providers office take steps to keep other people from getting infected or exposed. Wear a face mask You should wear a face mask when you are around other people (e.g., sharing a room or vehicle) or pets and before you enter a healthcare providers office. If you are not able to wear a face mask (for example, because it causes trouble breathing), then people who live with you should not stay in the same room with you, or they should wear a face mask if they enter your room. Cover your coughs and sneezes Cover your mouth and nose with a tissue when you cough or sneeze. Throw used tissues in a lined trash can. Immediately wash your hands with soap and water for at least 20 seconds or, if soap and water are not available, clean your hands with an alcohol-based hand cement and concrete plant worker that contains at least 60% alcohol. Clean your hands often Wash your hands often with soap and water for at least 20 seconds, especially after blowing your nose, coughing, or sneezing; going to the bathroom; and before eating or preparing food. If soap and water are not readily available, use an alcohol-based hand cement and concrete plant worker with at least 60% alcohol, covering all surfaces of your hands and rubbing them together until they feel dry. Soap and water are the best option if hands are visibly dirty. Avoid touching your eyes, nose, and mouth with unwashed hands. Avoid sharing personal household items You should not share dishes, drinking glasses, cups, eating utensils, towels, or bedding with other people or pets in your home. After using these items, they should be washed thoroughly with soap and water. Clean all high-touch surfaces everyday High touch surfaces include counters, tabletops, doorknobs, bathroom fixtures, toilets, phones, keyboards, tablets, and bedside tables. Also, clean any surfaces that may have blood, stool, or body fluids on them. Use a household cleaning spray or wipe, according to the label instructions. Labels contain instructions for safe and effective use of the cleaning product including precautions you should take when applying the product, such as wearing gloves and making sure you have good ventilation during use of the product. Monitor your symptoms Seek prompt medical attention if your illness is worsening (e.g., difficulty breathing).Beforeseeking care, call your healthcare provider and tell them that you have, or are being evaluated for, COVID-19. Put on a face mask before you enter the facility. These steps will help the healthcare providers office to keep other people in the office or waiting room from getting infected or exposed. Ask your healthcare provider to call the local or state health department. Persons who are placed under active monitoring or facilitated self- monitoring should follow instructions provided by their local health department or occupational health professionals, as appropriate. When working with your local health department check their available hours. If you have a medical emergency and need to call 911, notify the dispatch pers onnel that you have, or are being evaluated for COVID-19. If possible, put on a face mask before emergency medical services arrive. Discontinuing home isolation Patients with confirmed COVID-19 should remain under home isolation precautions until the risk of secondary transmission to others is thought to be low. The decision to discontinue home isolation precautions should be made on a fqvy-qa-lhpu basis, in consultation with healthcare providers and state and local health departments. Coronavirus disease 2019 (COVID-19) is a virus that causes a respiratory illness. It is caused by a coronavirus called 2019 novel coronavirus (2019- nCoV). There are many types of coronavirus. Coronaviruses are a very common cause of bronchitis. They may sometimes cause lung infection(pneumonia). Symptoms can range from mild to severe respiratory illness. These viruses are also foundin some animals. COVID-19 was first found in people in [facility], in late 2019. In 2020, several cases of COVID-19 have been confirmed in the [place] Public health officials are working to find the source. How the virus spreads is not yet fully known. It may be spread through droplets of fluid that a person coughs or sneezes into the air. It may be spread if you touch a surface with virus on it, such as a handle or object, and then touch your mouth. What are the symptoms of COVID-19? Some people have no symptoms or mild symptoms. Symptoms may appear 2 to 14 days after contact with the virus. Symptoms can include: Fever Coughing Trouble breathing What are possible complications from COVID-19? In many cases, this virus can cause infection (pneumonia) in both lungs. In some cases, this can cause . How is COVID-19 diagnosed? Your healthcare provider will ask about your symptoms. He or she will also ask about your recent travel and contact with sick people. Testing for the virus is only done through the CDC. If yourhealthcare provider thinks you may have COVID- 19, he or she will work with your local health department and the CDC on testing. Follow all instructions from your healthcare provider. COVID-19 is diagnosed by: Nasal and throat swab. A cotton-tipped swab is wiped inside your nose or throat. This is done to check for viruses in your nasal mucus. Sputum culture. A small sample of mucus coughed from your lungs (sputum) is collected if you have a cough. It is checked for the virus. How is COVID-19 treated? There is currently no medicine to treat the virus. Treatment is done to help your body while it fights the virus. This is known as supportive care. Supportive care may include: Pain medicine. These include acetaminophen and ibuprofen. They are used to help ease pain and reduce fever. Bed rest. This helps your body fight the illness. For severe illness, you may need to stay in the hospital. Care during severe illness may include: IV (intravenous) fluids.These are given through a vein to help keep your body hydrated. Oxygen. Supplemental oxygen or ventilation with a breathing machine (ventilator) may be given. This is done to keep enough oxygen in your body. Are you at risk for COVID-19? If youve been to a place where people have been sick with this virus, you are a t risk for infection. You are at risk if you: Recently traveled to an affected area Had contact with a sick person who recently traveled to this area Had contact with a person who was diagnosed with COVID-19 How can COVID-19 be prevented? There is no vaccine yet. The best prevention is to not have contact with the virus. The CDC advises that people should not travel to areas where there are COVID-19 outbreaks right now for any reason that is not urgent. To help prevent spreading the infection, wash your hands often, or use an alcohol-basedhand cement and concrete plant worker. If you are in an area with COVID-19: Wash your hands often. Or use an alcohol-based hand cement and concrete plant worker often. Only touch your eyes, nose, or mouth with clean hands. Dont have contact with people who are sick. Follow local instructions about being in public. For example, you may be told to not use public transport for a period of time. Stay away from markets that have live or animals. Wash your hands after touching any animals. Don't touch animals that may be sick. Dont share eating or drinking tools with sick people. Dont kiss someone who is sick. Clean surfaces often with disinfectant. If you were in an area with COVID-19 in the last 14 days: Call your healthcare provider. He or she can talk with local health staff to see what action may be needed. Follow all instructions from your provider. Take your temperature every morning and evening for at least 14 days. This is to check for fever. Keep a record of the readings. Keep watch for symptoms of the virus. Tell your provider right away if you have symptoms. If you were in an area with COVID-19 and have a fever or other symptoms: Dont panic. Keep in mind that other illnesses can cause similar symptoms. Stay away from work, school, and public places. Limit physical contact with family members. Don't kiss anyone or share eating or drinking utensils. Clean surfaces you touch with disinfectant. This is to help prevent the virus from spreading. Call your healthcare provider. Explain that you have been exposed to COVID-19 and have symptoms. Do this before going to any hospital. Wait for instructions. Keep in mind that healthcare staff may wear protective equipment such as masks, gowns, gloves, and eye protection. You may be put in a separate room. This is to prevent the possible virus from spreading. Tell the healthcare staff about recent travel. This includes local travel on public transport. Staff may need to find other people you have been in contact with. Follow all instructions the healthcare staff give you. If you have been diagnosed with COVID-19 Follow all instructions from your healthcare provider. Dont leave your home, except to get medical care. Call your healthcare providers office before going. They can prepare and give you instructions. This will help prevent the virus from spreading. Dont go to work, school, or public areas. Dont use public transport or taxis. Stay away from other people in your home. Have them wear face masks around you. Dont share household items or food. Wear a face mask if you can. This includes at home or in a medical facility. Cover your face with a tissue when you cough or sneeze. Throw the tissue away. Wash your hands. Wash your hands often. Caregivers should: Follow all instructions from healthcare staff. Wear a face mask and protective clothing as advised. Wash hands often. Keep track of the sick persons symptoms. Clean surfaces, fabrics, and laundry thoroughly. Keep other people away from the sick person. When to call your healthcare provider Call your healthcare provider: If youve recently traveled and have symptoms If you have been diagnosed with COVID-19 and your symptoms are worse To learn more To find out more about COVID-19, visit the CDC website at www.cdc.gov/coronavirus/2019-ncov/index.html. 1894-[address] [employer]. [address] [place] [address], [place] [address]. All rights reserved. This information is not intended as a substitute for professional medical care. Always follow your healthcare professional's instructions. This information has been adapted from [employer] Pending Studies at Discharge: No Stand-Alone Forms: My [facility] [place], Smoking Cessation Medications and DC Order Prescriptions: Continued meloxicam 15 mg tablet 15 mg PO QAM RF: 0 testosterone cypionate 100 mg/mL Oil 100 mg IM WK RF: 0 venlafaxine 150 mg capsule,extended release 24hr 150 mg PO QAM RF: 0 rosuvastatin 10 mg tablet 10 mg PO QAM RF: 0 Discharge Orders: Discharge Order (Routine); Ordered 08/22/20 Ordered By: Becky Lafleur Admission Data Admit Date/Time: 08/21/20 01:47 Attending Provider: Becky Lafleur Admit Provider: Aries Venegas Primary Care Provider: Merline Foley Other Providers: Aries Venegas ; Thomas Hutchins
== END 2020-08-22 15:52 | disposition home or self-care (01) | DRG 178 ==
LOC: ED 21:57 → SUATTDRO 08-21 01:47 → 2S 08-21 01:47